=== PATIENT | female | born 1995 | race Caucasian/White ===

== ENCOUNTER → 2017-06-27 | Outpatient (CLI) | payer BC ==
--- NOTE | 2017-06-27 12:16 | DIAGNOSTIC IMAGING REPORT ---
CHEST 2 VIEWS ROUTINE HISTORY: 22 years-old Female COUGH acute cough COMPARISON: None available TECHNIQUE: PA and lateral views of the chest FINDINGS: Cardiac mediastinal and hilar silhouettes are within normal limits. No pneumothorax, pleural effusion, focal airspace consolidation or overt pulmonary edema. Mild right hemidiaphragmatic elevation. Bones of the chest appear grossly intact. IMPRESSION: No acute process. The above report was generated using voice recognition software. It may contain grammatical, syntax or spelling errors. Electronically signed by: Chinedu Castillo M.D. 06/27/2017 12:15 PM Dictated Date/Time: 06/27/2017 12:14 PM
== END | disposition home or self-care (01) ==
LOC: C.RAD1850 11:48
PROVIDERS: ATTEND Family Medicine Adolescent Medicine
DX: R05 Cough (principal)

== ENCOUNTER → 2017-07-18 | Outpatient (CLI) | payer BC | END | disposition home or self-care (01) | LOC: C.RC 09:08 | PROVIDERS: ATTEND Student in an Organized Health Care Education/Training Program | DX: R05 Cough (principal) ==

== ENCOUNTER 2021-06-30 12:07 | Inpatient (IN) ==
--- NOTE | 2021-06-30 12:43 | Emergency Department Note ---
History of Present Illness General Chief complaint: Shortness of Breath/Dyspnea Stated complaint: SOB WHEN WALKING, LIGHTHEADED, NAUSEA Time Seen by Provider: 06/30/21 12:24 History of Present Illness Maximum Pain Intensity: 2 26-year-old female presents to the ED with a chief complaint of shortness of breath with exertion. She also reports some mild chest discomfort/tightness with deep breathing. The patient reports feeling a little lightheaded this morning. Symptoms are worse with exertion. She has a family history of PE. Denies any upper respiratory symptoms. She did have a little left calf pain this morning but that seems better now. Past Med/Surg History Social History Smoking Status: Never smoker Feels Safe at Home: Yes Review of Systems A total of 10 systems reviewed and were otherwise negative Physical Exam Vital Signs Vital Signs - 24 hr 06/30/21 12:19 06/30/21 12:39 06/30/21 13:07 Temperature 36.4 C L Temperature Source Temporal Artery Scan Pulse Rate 127 H 118 H Pulse Rate [Apical] 127 H Respiratory Rate 24 24 22 Respiratory Effort / Characteristics Non-Labored Spontaneous Respiratory Depth Normal Blood Pressure 139/87 Blood Pressure [Right Arm] 127/86 Blood Pressure Mean 104 Blood Pressure Mean [Right Arm] 99 Pulse Oximetry 90 94 95 Oxygen Delivery Method Room Air Room Air Room Air Sepsis Recent Fever Within 48 Hours No Sepsis New/Unexplained Change in Mental Status N/A Sepsis Action Taken by Nursing No Action Required 06/30/21 13:11 Temperature Temperature Source Pulse Rate Pulse Rate [Apical] Respiratory Rate Respiratory Effort / Characteristics Respiratory Depth Blood Pressure Blood Pressure [Right Arm] Blood Pressure Mean Blood Pressure Mean [Right Arm] Pulse Oximetry Oxygen Delivery Method Room Air Sepsis Recent Fever Within 48 Hours Sepsis New/Unexplained Change in Mental Status Sepsis Action Taken by Nursing CONSTITUTIONAL/VITAL SIGNS: Reviewed / noted above. GENERAL: Non-toxic in appearance. Obese. INTEGUMENTARY: Warm, dry, and [place]. HEAD: Normocephalic. EYES: without scleral icterus or trauma. ENT/OROPHARYNX: clear and moist. LYMPHADENOPATHY/NECK: Is supple without lymphadenopathy or meningismus. RESPIRATORY: Clear to auscultation bilaterally. No increased work of breathing. CARDIOVASCULAR: Tachycardic rate and regular rhythm. GI/ABDOMEN: Soft and nontender. No organomegaly or pulsatile mass. EXTREMITIES: Warm and well perfused. BACK: No CVA tenderness. NEUROLOGICAL: Intact without focal deficits. PSYCHIATRIC: normal affect. MUSCULOSKELETAL: Normally developed with good muscle tone. No calf tenderness. TRIAGE NURSING DOCUMENTATION REVIEWED. Course Administered Medications Discontinued Medications Ioversol (Optiray 320 125ml) 120 ml IV ONCE ONE Stop: 06/30/21 14:29 Last Admin: 06/30/21 14:28 Dose: 120 ml Documented by: [id number] Critical Care Time Critical Care Time: Yes Total Critical Care Time: 30 I have personally spent 30 minutes of critical care time in the direct management of this patient. This includes bedside care, interpretation of diagnostic studies, and testing, discussion with consultants, patient, and family members, and other required patient management activities. This 30 minutes is in excess of all separately billable procedures. Medical Decision Making Differential Diagnosis The differential that was considered includes acute myocardial infarction, acute coronary syndrome, myocarditis, pericarditis, pericardial effusions /tamponade, esophageal perforation, thoracic aortic dissection, pulmonary embolism, pneumonia, pneumothorax, pancreatitis, shingles, acute cholecystitis, perforated abdominal viscus. Medical Records Attestation: I reviewed the patient's medical records. Home Medications Current Medication List: was personally reviewed by me Laboratory Data Attestation: I reviewed the patient's lab results. Result diagrams: 06/30/21 13:08 06/30/21 13:08 Lab Results 06/30/21 06/30/21 06/30/21 Range/Units 13:08 13:08 13:08 WBC 12.04 H (4.8-10.8) K/uL RBC 4.65 (4.2-5.4) M/uL Hgb 13.1 (12.0-16.0) g/dL Hct 39.5 (37-47) % MCV 84.9 (80-100) fL MCH 28.2 (25-34) pg MCHC 33.2 (32-36) g/dL RDW Std Deviation 42.0 (36.4-46.3) fL RDW Coeff of Dany 13.6 (11.5-14.5) % Plt Count 303 (130-400) K/uL MPV 9.2 (7.4-10.4) fL Immature Gran % (Auto) 0.2 % Neut % (Auto) 80.8 % Lymph % (Auto) 15.0 % Gates % (Auto) 2.9 % Eos % (Auto) 0.9 % Baso % (Auto) 0.2 % Neut # (Auto) 9.73 H (1.4-6.5) K/uL Lymph # (Auto) 1.81 (1.2-3.4) K/uL Gates # (Auto) 0.35 (0.11-0.59) K/uL Eos # (Auto) 0.11 (0-0.5) K/uL Baso # (Auto) 0.02 (0-0.2) K/uL Immature Gran # (Auto) 0.02 (0.00-0.02) K/uL PT 9.5 (9.0-12.0) Seconds INR 0.9 (0.9-1.1) APTT 24.2 (21.0-31.0) Seconds PTT Ratio 0.9 D-Dimer 3850 H* (0-500) ug/L FEU Sodium 136 (136-145) mmol/L Potassium 4.2 (3.5-5.1) mmol/L Chloride 104 (98-107) mmol/L Carbon Dioxide 22 (21-32) mmol/L Anion Gap 10 (3-11) BUN 16 (6-23) mg/dl Creatinine 0.64 (0.6-1.2) mg/dl Est Cr Clr Drug Dosing 198.8 ml/min Est GFR ( Amer) 140.7 ml/min Est GFR (Non-Af Amer) 121.4 ml/min BUN/Creatinine Ratio 25.0 H (10-20) Glucose 133 H (70-99(Fasting)) mg/dl Calcium 8.8 (8.5-10.1) mg/dl Total Bilirubin 0.2 (0.2-1.0) mg/dl AST 11 L (13-39) U/L ALT 9 (7-52) U/L Alkaline Phosphatase 79 (34-104) U/L Troponin I 0.15 H* (0-0.04) ng/ml Total Protein 7.2 (6.0-8.3) gm/dl Albumin 3.7 (3.4-5.0) gm/dl Globulin 3.5 (2.5-4.0) gm/dl Albumin/Globulin Ratio 1.1 (0.9-2) HCG, Qual (Negative) 06/30/21 Range/Units 13:08 WBC (4.8-10.8) K/uL RBC (4.2-5.4) M/uL Hgb (12.0-16.0) g/dL Hct (37-47) % MCV (80-100) fL MCH (25-34) pg MCHC (32-36) g/dL RDW Std Deviation (36.4-46.3) fL RDW Coeff of Dany (11.5-14.5) % Plt Count (130-400) K/uL MPV (7.4-10.4) fL Immature Gran % (Auto) % Neut % (Auto) % Lymph % (Auto) % Gates % (Auto) % Eos % (Auto) % Baso % (Auto) % Neut # (Auto) (1.4-6.5) K/uL Lymph # (Auto) (1.2-3.4) K/uL Gates # (Auto) (0.11-0.59) K/uL Eos # (Auto) (0-0.5) K/uL Baso # (Auto) (0-0.2) K/uL Immature Gran # (Auto) (0.00-0.02) K/uL PT (9.0-12.0) Seconds INR (0.9-1.1) APTT (21.0-31.0) Seconds PTT Ratio D-Dimer (0-500) ug/L FEU Sodium (136-145) mmol/L Potassium (3.5-5.1) mmol/L Chloride (98-107) mmol/L Carbon Dioxide (21-32) mmol/L Anion Gap (3-11) BUN (6-23) mg/dl Creatinine (0.6-1.2) mg/dl Est Cr Clr Drug Dosing ml/min Est GFR ( Amer) ml/min Est GFR (Non-Af Amer) ml/min BUN/Creatinine Ratio (10-20) Glucose (70-99(Fasting)) mg/dl Calcium (8.5-10.1) mg/dl Total Bilirubin (0.2-1.0) mg/dl AST (13-39) U/L ALT (7-52) U/L Alkaline Phosphatase (34-104) U/L Troponin I (0-0.04) ng/ml Total Protein (6.0-8.3) gm/dl Albumin (3.4-5.0) gm/dl Globulin (2.5-4.0) gm/dl Albumin/Globulin Ratio (0.9-2) HCG, Qual Negative (Negative) Imaging Data Radiologist's Impression: Chest CTA 06/30/21 12:39 CT angio chest PE protocol CLINICAL HISTORY: Dyspnea . Chest tightness. Evaluate for pulmonary embolus COMPARISON STUDY: No previous studies for comparison. CT DOSE: 1027.57 mGy.cm TECHNIQUE: CT Angio of the chest was performed.followed by image post processing with coronal, and sagittal MIP reformats. Contrast Volume: Optiray 320, 120 ml FINDINGS: Vasculature: There are intraluminal filling defects seen within the right lower lobe and left lower lobe pulmonary arteries. Thrombus extends into the second, third and fourth degree branches of both lower lobe pulmonary arteries. There is also thrombus present within the right upper lobe pulmonary arteries. Airway: The airway is clear. No endobronchial lesion is identified. Lungs: The lungs are clear of acute alveolar opacities, air bronchograms or pulmonary nodules. Pleura: There is no evidence for pleural effusion. There is no evidence for pneumothorax. Mediastinum: There is no evidence for pathologic adenopathy. There is evidence for mild right-sided heart strain with the ventricular septum is midline. The heart size is within normal limits. The thoracic aorta is within normal limits. There is no evidence for pericardial effusion. Upper abdomen:The adrenal glands are normal bilaterally. There is a small hiatal hernia. Osseous structures: There is no acute osseous pathology. Impression: 1. Positive CTA for right upper lobe, right lower lobe and left lower lobe pulmonary emboli. 2. Evidence for mild right heart strain with the ventricular septum is midline. 3. Otherwise, no acute chest disease. 4. Small hiatal hernia. ACT 112: Negative or not required by law. Electronically signed by: Alberto Polk M.D. 06/30/2021 2:42 PM ECG Data Attestation: I personally reviewed and interpreted this ECG as follows: Additional Comments: Twelve-lead EKG: Per my interpretation shows a sinus tach at a rate of 115. No ST elevation. No PVCs. Normal QTC. MDM Narrative 26-year-old female presents with shortness of breath with exertion. Vital signs reveal tachycardia and pulse ox is 90%. She is afebrile. D-dimer is elevated. CBC is normal. Chemistry panel was unremarkable. EKG shows sinus tach at a rate of 115. Troponin is elevated at 0.415. hCG was negative. CT scan showed bilateral PEs. The patient was told the results of the test. The patient was ordered IV heparin. She will be seen by the hospitalist. Impression & Plan Pulmonary embolism, Elevated troponin Discharge Plan Visit Data Chief Complaint: Shortness of Breath/Dyspnea Stated Complaint: SOB WHEN WALKING, LIGHTHEADED, NAUSEA ED Provider: Nilo Finch Discharge Problem: Pulmonary embolism, Elevated troponin Patient Disposition: Being Evaluated by Hospitalist Forms Stand Alone Forms: [facility] [place], [facility] Emergency Department, Important Visit Information Referrals Referrals: Cynthia Mcclelland MD [Primary Care Provider] -
[2021-06-30 13:22] LABS: Basophils # (auto) 0.02 K/uL (0-0.2); Basophils % (auto) 0.2 %; Eosinophils # (auto) 0.11 K/uL (0-0.5); Eosinophils % (auto) 0.9 %; Hematocrit (blood only) 39.5 % (37-47); Hemoglobin 13.1 g/dL (12.0-16.0); Immature Granulocytes # (auto) 0.02 K/uL (0.00-0.02); Immature Granulocytes % (auto) 0.2 %; Lymphocytes # (auto) 1.81 K/uL (1.2-3.4); Mean Corpuscular Hemoglobin 28.2 pg (25-34); Mean Corpuscular Hgb Conc 33.2 g/dL (32-36); Mean Corpuscular Volume 84.9 fL (80-100); Mean Platelet Volume 9.2 fL (7.4-10.4); Monocytes # (auto) 0.35 K/uL (0.11-0.59); Monocytes % (auto) 2.9 %; Neutrophils # (auto) 9.73 K/uL (1.4-6.5); Neutrophils % (auto) 80.8 %; Platelet Count 303 K/uL (130-400); RDW Coefficient of Variation 13.6 % (11.5-14.5); Red Blood Count 4.65 M/uL (4.2-5.4); White Blood Count 12.04 K/uL (4.8-10.8)
[2021-06-30 13:47] LABS: INR 0.9 (0.9-1.1); Partial Thromboplastin Ratio 0.9; Partial Thromboplastin Time 24.2 Seconds (21.0-31.0); Prothrombin Time 9.5 Seconds (9.0-12.0)
[2021-06-30 13:51] LABS: D Dimer 3850 ug/L FEU (0-500)
[2021-06-30 14:09] LABS: Albumin Globulin Ratio 1.1 (0.9-2); Albumin Level 3.7 gm/dl (3.4-5.0); Bilirubin,Total 0.2 mg/dl (0.2-1.0); Calcium 8.8 mg/dl (8.5-10.1); Creatinine Clr Calc Pharmacy 198.8 ml/min; Est GFR (African American) 140.7 ml/min; Est GFR (Non-African American) 121.4 ml/min; Globulin 3.5 gm/dl (2.5-4.0); Potassium 4.2 mmol/L (3.5-5.1); Total Protein 7.2 gm/dl (6.0-8.3)
[2021-06-30 14:12] LABS: Troponin I 0.15 ng/ml (0-0.04)
[2021-06-30 14:14] LABS: Pregnancy Test, Serum Negative (Negative)
[2021-06-30] MEDS ORDERED: OPTIRAY 320 125ml IV ONE (14:28)
[2021-06-30] MEDS ORDERED: Heparin IV Adult Wt-Based Standard WITH Bolus Protocol IV STA (14:33)
--- NOTE | 2021-06-30 14:43 | CT Scan Report ---
CT angio chest PE protocol CLINICAL HISTORY: Dyspnea . Chest tightness. Evaluate for pulmonary embolus COMPARISON STUDY: No previous studies for comparison. CT DOSE: 1027.57 mGy.cm TECHNIQUE: CT Angio of the chest was performed.followed by image post processing with coronal, and s agittal MIP reformats. Contrast Volume: Optiray 320, 120 ml FINDINGS: Vasculature: There are intraluminal filling defects seen within the right lower lobe and left lower l obe pulmonary arteries. Thrombus extends into the second, third and fourth degree branches of both lo wer lobe pulmonary arteries. There is also thrombus present within the right upper lobe pulmonary art eries. Airway: The airway is clear. No endobronchial lesion is identified. Lungs: The lungs are clear of acute alveolar opacities, air bronchograms or pulmonary nodules. Pleura: There is no evidence for pleural effusion. There is no evidence for pneumothorax. Mediastinum: There is no evidence for pathologic adenopathy. There is evidence for mild right-sided h eart strain with the ventricular septum is midline. The heart size is within normal limits. The thora cic aorta is within normal limits. There is no evidence for pericardial effusion. Upper abdomen:The adrenal glands are normal bilaterally. There is a small hiatal hernia. Osseous structures: There is no acute osseous pathology. Impression: 1. Positive CTA for right upper lobe, right lower lobe and left lower lobe pulmonary emboli. 2. Evidence for mild right heart strain with the ventricular septum is midline. 3. Otherwise, no acute chest disease. 4. Small hiatal hernia. ACT 112: Negative or not required by law. Electronically signed by: Alberto Polk M.D. 06/30/2021 2:42 PM
[2021-06-30] MEDS ORDERED: HEPARIN SOD (PORCINE) 1000 UNIT/ML IV ONE (14:48)
--- NOTE | 2021-06-30 14:56 | History & Physical Report ---
Date of Service June 30, 2021 Assessment & Plan (1) Pulmonary embolism: Plan: Extensive pulmonary emboli on CTA with some evidence of right heart strain, positive troponin and right axis deviation on EKG - discussed with roustabout crew leader (Dr Adams) and no need for tPA at this time unless clots transits on echocardiogram. BP stable and no hypoxia therefore we will monitor on PCU. PESI score 48 - very low risk. TTE stat to assess to clot in transit and right heart strain US venous doppler LLE due to calf pain on this side Stop oral contraceptive pill indefinitely Heparin IV standard bolus and drip (2) Elevated troponin: Plan: As above (3) Depression with anxiety: Plan: Continue citalopram Plan: VTE Prophylaxis - heparin IV as above Diet - regular Disposition - admit to PCU Admission and Anticipated Discharge Date Admission Date: June 30, 2021 History of Present Illness Chief Complaint: Shortness of breath, left calf pain Primary Care Provider: Cynthia Mcclelland MD Anuel Walls is a 26 year old female who presents to the the ER with shortness of breath and left calf pain. She reports feeling her normal self yesterday. Symptoms started this morning on waking up - feeling short of breath and light headed with left calf pain and palpitations. Worse on exertion but not position. She reports calf pain subsequently resolving. Associated chest tightness but no pain. She recognized her symptoms of pulmonary emboli due to her family history therefore drove to the emergency room. No significant change since arriving in the emergency room. Able to speak in full sentences at rest. She takes a combined oral conceptive Jacob Fe. She reports decreased mobility due to working at home with COVID and sitting for most of the day with her job. She doesn't smoke. Paternal grandmother had a blood clot but was much older when diagnosed with this. Mother had a pulmonary emboli after a hysterectomy. In the ER CT for PE shows extensive pulmonary emboli in the right upper and lower lobes and left lower lobes with evidence of mild right heart strain. Troponin I elevated 0.15 ng/ml. Intravenous heparin standard bolus and drip has been ordered. She was referred to medicine for admission and ongoing management of pulmonary emboli. Allergies Allergy/AdvReac Type Severity Reaction Status Date / Time No Known Allergies Allergy Unverified 06/30/21 16:18 Home Medications Medication Instructions Recorded Confirmed Type citalopram 20 mg tablet 30 mg PO DAILY 06/30/21 06/30/21 History norethindrone 1.5 mg-ethinyl 1 tab PO DAILY 06/30/21 06/30/21 History estradiol 30 mcg(21)/iron 75 mg(7) tablet (Jacob Fe 1.5/30 (28)) Past Med/Surg History Medical History (Updated 06/30/21 @ 16:39 by Bunny Yates MD) Depression with anxiety Social History Smoking Status: Never smoker Feels Safe at Home: Yes Review of Systems Review of Systems: All systems reviewed & are unremarkable except as noted in HPI & below Physical Exam Constitutional: WD/WN, vitals as above Eyes: + anicteric sclerae; normal pupil size ENMT: external ear and nose normal, oropharynx normal Neck: trachea midline, no thyromegaly Respiratory: normal respiratory effort, lungs clear to auscultation Cardiovascular: Rate/Rhythm: regular rhythm and + tachycardic Heart Sounds: no murmur Vessels: no JVD Extremities: normal capillary refill; no calf tenderness and no pedal edema Gastrointestinal (Abdomen): normal bowel sounds, soft, nontender, no hepatosplenomegaly Musculoskeletal: no cyanosis or clubbing, extremities motor strength 5/5 Skin: no rashes, warm and dry Neurologic: moves all extremities and awake; not confused Psychiatric: A+Ox3, euthymic affect Results & Data Results & Data ([facility]) Vital Signs (Past 12 Hours) Vital Signs Temp Pulse Pulse Resp BP BP Pulse Ox 06/30/21 13:07 127 H 22 127/86 95 06/30/21 12:39 118 H 24 94 06/30/21 12:19 36.4 C L 127 H 24 139/87 90 Laboratory Results Abnormal lab results 06/30/21 06/30/21 06/30/21 Range/Units 13:08 13:08 13:08 WBC 12.04 H (4.8-10.8) K/uL Neut # (Auto) 9.73 H (1.4-6.5) K/uL D-Dimer 3850 H* (0-500) ug/L FEU BUN/Creatinine Ratio 25.0 H (10-20) Glucose 133 H (70-99(Fasting)) mg/dl AST 11 L (13-39) U/L Troponin I 0.15 H* (0-0.04) ng/ml Diagnostic Findings CT angio chest PE protocol CLINICAL HISTORY: Dyspnea . Chest tightness. Evaluate for pulmonary embolus COMPARISON STUDY: No previous studies for comparison. CT DOSE: 1027.57 mGy.cm TECHNIQUE: CT Angio of the chest was performed.followed by image post processing with coronal, and sagittal MIP reformats. Contrast Volume: Optiray 320, 120 ml FINDINGS: Vasculature: There are intraluminal filling defects seen within the right lower lobe and left lower lobe pulmonary arteries. Thrombus extends into the second, third and fourth degree branches of both lower lobe pulmonary arteries. There is also thrombus present within the right upper lobe pulmonary arteries. Airway: The airway is clear. No endobronchial lesion is identified. Lungs: The lungs are clear of acute alveolar opacities, air bronchograms or pulmonary nodules. Pleura: There is no evidence for pleural effusion. There is no evidence for pneumothorax. Mediastinum: There is no evidence for pathologic adenopathy. There is evidence for mild right-sided heart strain with the ventricular septum is midline. The heart size is within normal limits. The thoracic aorta is within normal limits. There is no evidence for pericardial effusion. Upper abdomen:The adrenal glands are normal bilaterally. There is a small hiatal hernia. Osseous structures: There is no acute osseous pathology. Impression: 1. Positive CTA for right upper lobe, right lower lobe and left lower lobe pulmonary emboli. 2. Evidence for mild right heart strain with the ventricular septum is midline. 3. Otherwise, no acute chest disease. 4. Small hiatal hernia. Medications Administered ER medications given: Heparin IV standard bolus and drip ECG Indication: SOB/dyspnea Rate (beats per minute): 115 Rhythm: sinus tachycardia Findings: + other (right axis deviation) Comparison ECG Date: no prior available Code Status & VTE Plan Code Status Full VTE Prophylaxis Plan VTE Prophylaxis will be ordered: Yes PG Care Time/CCT Total # of Minutes Spent Total Time Spent with Patient: Total time spent is greater than 50% in coordination of care (as documented) at patient's floor/unit and/or counseling patient: Coding Level of Care Code 11944 Initial Inpt Care Lvl 3 Diagnoses Pulmonary embolism I26.99 Elevated troponin R77.8 Depression with anxiety F41.8
[2021-06-30] MEDS ORDERED: HEPARIN SODIUM/DEXTROSE 25,000 UNITS/500 ML BAG IV SCH (15:00)
[2021-06-30] MEDS ORDERED: ACETAMINOPHEN 325 MG TAB PO STA (16:39)
--- NOTE | 2021-06-30 17:14 | XCELERA ---
[id number]
[2021-06-30] MEDS ORDERED: DC ALL ANTICOAGULANTS STA (19:36)
[2021-06-30] MEDS ORDERED: ALTEPLASE, RECOMBINANT 100 MG in EMPTY BAG 0 ML IV STA (19:36)
[2021-06-30] MEDS ORDERED: PRIMARY PLUMSET, PE LINED TUBING, 113 IN, NON-DEHP (2260-0500) IV STA (19:36)
[2021-06-30] MEDS ORDERED: SODIUM CHLORIDE 0.9% 50 ML BAG IV STA (19:36)
[2021-06-30] MEDS ORDERED: Heparin IV Adult Wt-Based Low-Dose *NO* Bolus Protocol IV SCH (20:00)
--- NOTE | 2021-06-30 20:11 | Critical Care Consultation ---
Date of Consultation June 30, 2021 Assessment & Plan (1) Pulmonary embolism: Reason Critically Ill: 26-year-old female with pulmonary emboli extending into the right upper, lower, and middle lobes with evidence of right heart strain. Patient receiving tPA for lysis and admitted to ICU. Neuro - Anxiety and depression: Continue citalopram home dose Cardiac - Right heart strainas evident on CTA chest and echo secondary to extensive right pulmonary emboli. Patient currently with compensatory tachycardia and mildly elevated troponin. We will continue to monitor on telemetry. Expect to improve following lysis. Respiratory - Pulmonary embolismpulmonary emboli seen on CTA and right upper, lower, and middle lobe with evidence of right heart strain. She is currently maintaining oxygen saturations on room air without respiratory distress but does have symptomatic dyspnea. Patient was placed on heparin drip in ED and is currently undergoing lysis with tPA. Will resume heparin drip post tPA per protocol. Will monitor in ICU for 24 hours following tPA administration. She is currently on control and this should be discontinued. She did mention family history of blood clots without known clotting disorder, could consider work-up. She does have a history of obstructive sleep apnea and can use home CPAP. Continuous monitoring on pulse ox. GI - N.p.o. for now RENAL/LYTES - Creatinine stable, monitor routine BMPs and replete electrolytes as indicated - Strict I's and O's ENDO - No history of diabetes or thyroid disease. ICU hyperglycemic protocol HEME - H&H within normal limits, monitor for signs of bleeding. Type and screen ordered. ID - No indication for infectious process at this time LINES/IV ACCESS - Peripheral IV x1, left forearm 20-gauge endurance cath 04/30/2022 DVT PROPHYLAXIS - Suspect lower left DVT. Currently undergoing lysis. Lower extremity Doppler pending I have personally spent 40 minutes of critical care time in the direct management of this patient. This is a life/limb threatening event. This includes time spent evaluating patient, direct bedside care, chart review, placing orders, interpretation of diagnostic studies, discussion with consultants, patient, and family members, as well as other required patient management activities. This time is exclusive of all separately billable procedures, and teaching time and separate from and in addition to any other critical care service time. Thank you for allowing us to participate in the care of this patient. Please refer to my attending physician's documentation for any further recommendations. (2) Cor pulmonale: (3) Depression with anxiety: (4) Elevated troponin: (5) DVT (deep venous thrombosis): Supervising Physician Co-Signing Physician Notes I have personally evaluated and examined this patient. I agree with assessment and plan of Horace NARVAEZ. I discussed the risks and benefits of tPA with the patient and she opted to proceed with full dose tPA at this point. I believe that is reasonable given that she has right ventricular failure via echo as well as some alarming vital signs. Admittedly her Passey score was on the lower side however the patient is low risk for bleeding complications and would prefer to proceed with pharmacologic intervention. I have personally spent 35 minutes of critical care time in the direct management of this patient. This is a life/limb threatening event. This includes time spent evaluating patient, direct bedside care, chart review, placing orders, interpretation of diagnostic studies, discussion with consultants, patient, and/or family members regarding treatment decisions, as well as other required patient management activities. This time is exclusive of all separately billable procedures, and teaching time and separate from and in addition to any other critical care service time. History of Present Illness Attending Physician: Bunny Yates MD History of Present Illness Patient is a 26-year-old female with history of anxiety depression on citalopram, sleep apnea, on control. She also has family history of blood clots. She woke this morning to pain in her left calf. She soon began to have dyspnea and chest tightness with ambulation and motor activities. Patient presented to the emergency department where she underwent CTA chest which showed pulmonary embolism in the right upper, right lower, and left lower lobe with evidence of mild right heart strain. Echo showed septal flattening during diastole suggesting RV volume overload and dilated right ventricle with moderately reduced systolic function and severe hypokinesis of the right ventricle. She is initially started on heparin drip. Patient's troponin was elevated and she was tachycardic. ICU was consulted and lysis was recommended. Dr. Bonilla consented the patient for tPA which is now being administered. Patient to remain in ICU for 24 hours following tPA administration. On evaluation the patient is alert and oriented and without acute distress. She still complains of some dyspnea at rest but is no longer having chest pressure. She denies recent illness, headache, dizziness, sore throat, fevers, palpitations, abdominal pain, nausea or vomiting or diarrhea. She still complains of some calf pain in her left leg, but has not noticed any swelling. Allergies Allergy/AdvReac Type Severity Reaction Status Date / Time No Known Allergies Allergy Unverified 06/30/21 16:18 Home Medications Medication Instructions Recorded Confirmed Type citalopram 20 mg tablet 30 mg PO DAILY 06/30/21 06/30/21 History norethindrone 1.5 mg-ethinyl 1 tab PO DAILY 06/30/21 06/30/21 History estradiol 30 mcg(21)/iron 75 mg(7) tablet (Jacob Fe 1.5/30 (28)) Patient History Medical History (Updated 06/30/21 @ 21:34 by SOLANGE Espana) Depression with anxiety Social History Smoking Status: Never smoker Hx Alcohol Use: Yes Hx Substance Use: No Preferred Language: Irish Communication Ability: Effective Conveyor Tender Required: No Beliefs That Will Affect Care: None Current Living Situation: Alone Feels Safe at Home: Yes Safety Concerns: Feels Safe At This Time Review of Systems Review of Systems: All systems reviewed & are unremarkable except as noted in HPI & below Physical Exam Constitutional: WD/WN, vitals as above + obese, cooperative and comfortable; no acute distress Eyes: PERRL, conjunctivae normal, anicteric sclerae ENMT: external ear and nose normal, oropharynx normal Neck: trachea midline, no thyromegaly Respiratory: normal respiratory effort, lungs clear to auscultation Cardiovascular: Rate/Rhythm: regular rate, regular rhythm and + tachycardic Heart Sounds: normal S1 and normal S2; no murmur Extremities: no edema Gastrointestinal (Abdomen): normal bowel sounds, soft, nontender, no hepatosplenomegaly Musculoskeletal: no cyanosis or clubbing, extremities motor strength 5/5 Skin: no rashes, warm and dry Neurologic: PERRL, EOMI, accommodation nl, no face palsy, no dysarthria Psychiatric: A+Ox3, euthymic affect Results & Data Results & Data ([facility]) Vital Signs (Past 12 Hours) Vital Signs Temp Pulse Pulse Resp BP BP Pulse Ox 06/30/21 17:00 117 H 17 127/86 92 06/30/21 15:00 115 H 13 127/86 95 01/19/22 13:07 127 H 22 127/86 95 06/30/21 12:39 118 H 24 94 06/30/21 12:19 36.4 C L 127 H 24 139/87 90 Coding Level of Care Code Critical Care 1st 30-74 mins Diagnoses Cor pulmonale I27.81 Depression with anxiety F41.8 Pulmonary embolism I26.99 Elevated troponin R77.8 DVT (deep venous thrombosis) I82.409
[2021-06-30 20:17] LABS: Partial Thromboplastin Ratio 1.8; Partial Thromboplastin Time 47.8 Seconds (21.0-31.0)
--- NOTE | 2021-06-30 20:59 | Electrocardiogram Report ---
Test Reason : Blood Pressure : / mmHG Vent. Rate : 115 BPM Atrial Rate : 115 BPM P-R Int : 134 ms QRS Dur : 084 ms QT Int : 348 ms P-R-T Axes : 110 138 160 degrees QTc Int : 481 ms Suspect arm lead reversal, interpretation assumes no reversal Sinus tachycardia Right axis deviation Lateral infarct Cannot rule out Anterior infarct , age undetermined Abnormal ECG No previous ECGs available Confirmed by Johnnie Arias ([id number]) on 06/30/2021 8:58:39 PM Referred By: REFERRED SELF Confirmed By:Johnnie Arias
[2021-06-30] MEDS ORDERED: ONDANSETRON INJ 2 MG/ML 2 ML VIAL IV PRN (21:11)
[2021-06-30] MEDS ORDERED: ACETAMINOPHEN 325 MG TAB PO PRN (21:11)
--- NOTE | 2021-06-30 21:20 | Procedure Note ---
Procedure Note Date of Service June 30, 2021 Note ENDURANCE CATHETER PROCEDURE NOTE: Procedure: Fpc Indwelling Peripherally Inserted IV Catheter Placement Attending: Dr. Bonilla Provider: SOLANGE Dodd Indication: Need for IV Access, Poor Vascular Access Anesthesia: None Verbal consent was obtained from patient prior to performing the procedure. A time-out was completed verifying correct patient, procedure, site, positioning, and implant(s) or special equipment if applicable. Utilizing bedside ultrasound, vascularity of the left upper extremity was assessed. Vessel size was noted for appropriate catheter selection and skin was marked with gentle pressure. Patients left forearm was prepped and draped in the usual sterile fashion utilizing chlorhexidine. Ultrasound guidance was used to aid needle placement. A 20 g Endurance Catheter was introduced into the vein under direct ultrasound guidance. Guide wire was easily deployed without resistance. Catheter was threaded over the guide wire without resistance and the entire apparatus was removed intact. Good venous blood return was noted in the catheter. The IV catheter was easily flushed with sterile saline flush. Sterile clave was attached to the end of the catheter and good blood return was again noted. Tourniquet was released. StatLock device and sterile dressing were applied. The patient tolerated the procedure well. Blood Loss: Minimal Complications: None Procedural Ultrasound Guidance: Procedure Date: 06/30/2021 Indication: Poor Vascular Access Attending: Dr. Bonilla Povider: SOLANGE Dodd Artery/Veins Identified: YES Access confirmed in Vein with ultrasound: YES Complications: NONE Patient tolerated procedure: WELL Coding
--- NOTE | 2021-06-30 22:49 | CT Scan Report ---
CT head/brain wo con CLINICAL HISTORY: WISE, on TPA COMPARISON STUDY: No previous studies for comparison. CT DOSE: 537.48 mGy.cm TECHNIQUE: Standard CT of the Brain was performed without IV contrast. A dose lowering technique was utilized adhering to the principles of ALARA. FINDINGS: Extraaxial space: There is no evidence for subdural hematoma. There are no extra-axial fluid collecti ons. Ventricles and cisterns: The ventricles are normal in size and configuration. There is no evidence f or midline shift or mass effect. Parenchyma: There is no subarachnoid or intraparenchymal hemorrhage. There is no evidence for an acu te infarct or cerebral edema. There is homogeneous attenuation of the brain parenchyma. There are no gross mass lesions. Osseous structures: There is no evidence for an acute fracture. The visualized paranasal sinuses are clear. The mastoid air cells are clear bilaterally. Soft tissues: There is no evidence for focal soft tissue swelling. IMPRESSION: No acute intracerebral pathology. ACT 112: Negative or not required by law. Electronically signed by: Alberto Polk M.D. 06/30/2021 10:48 PM
--- NOTE | 2021-06-30 23:27 | Ultrasound Report ---
US venous doppler LE LT CLINICAL HISTORY: left leg pain, known PE COMPARISON: None available at the time of this dictation. TECHNIQUE: Left lower extremity real-time compression venous ultrasound with Color Doppler imaging. Utilizing real-time ultrasonic imaging multiple real time high-resolution ultrasonic images with comp ression and noncompression maneuvers of the deep venous system in addition to color doppler imaging w ere performed from the common femoral vein through the proximal calf veins. FINDINGS: Currently there is normal compressibility of the deep venous system from the common femoral vein thro ugh the proximal calf veins. No current evidence of acute thrombosis is identified. Impression: No evidence of deep venous thrombus. ACT 112: Negative or not required by law. Electronically signed by: Alberto Polk M.D. 06/30/2021 11:25 PM
[2021-07-01] MEDS ORDERED: OXYMETAZOLINE 0.05% 30 ML BTL ONE (00:21)
[2021-07-01 01:26] LABS: Hematocrit (blood only) 38.5 % (37-47); Hemoglobin 12.8 g/dL (12.0-16.0); Mean Corpuscular Hemoglobin 28.8 pg (25-34); Mean Corpuscular Hgb Conc 33.2 g/dL (32-36); Mean Corpuscular Volume 86.7 fL (80-100); Mean Platelet Volume 9.1 fL (7.4-10.4); Platelet Count 297 K/uL (130-400); RDW Coefficient of Variation 13.8 % (11.5-14.5); Red Blood Count 4.44 M/uL (4.2-5.4); White Blood Count 14.72 K/uL (4.8-10.8)
[2021-07-01 02:03] LABS: Partial Thromboplastin Ratio 1.7
[2021-07-01 02:12] LABS: Partial Thromboplastin Time 45.5 Seconds (21.0-31.0)
[2021-07-01] MEDS: HEPARIN SODIUM/DEXTROSE 25,000 UNITS/500 ML BAG IV SCH ×2 (02:28→20:33)
[2021-07-01 05:04] LABS: Basophils # (auto) 0.02 K/uL (0-0.2); Basophils % (auto) 0.2 %; Eosinophils # (auto) 0.16 K/uL (0-0.5); Eosinophils % (auto) 1.3 %; Hematocrit (blood only) 38.7 % (37-47); Hemoglobin 12.7 g/dL (12.0-16.0); Immature Granulocytes # (auto) 0.03 K/uL (0.00-0.02); Immature Granulocytes % (auto) 0.2 %; Lymphocytes # (auto) 3.13 K/uL (1.2-3.4); Mean Corpuscular Hemoglobin 28.5 pg (25-34); Mean Corpuscular Hgb Conc 32.8 g/dL (32-36); Mean Corpuscular Volume 86.8 fL (80-100); Monocytes # (auto) 0.59 K/uL (0.11-0.59); Monocytes % (auto) 4.9 %; Neutrophils # (auto) 8.13 K/uL (1.4-6.5); Neutrophils % (auto) 67.4 %; Platelet Count 307 K/uL (130-400); RDW Coefficient of Variation 13.9 % (11.5-14.5); Red Blood Count 4.46 M/uL (4.2-5.4); White Blood Count 12.06 K/uL (4.8-10.8)
[2021-07-01 05:30] LABS: Troponin I 0.24 ng/ml (0-0.04)
[2021-07-01 05:36] LABS: BUN Creatinine Ratio 28.8 (10-20); Calcium 8.6 mg/dl (8.5-10.1); Creatinine Clr Calc Pharmacy 221.2 ml/min; Est GFR (African American) 144.6 ml/min; Est GFR (Non-African American) 124.7 ml/min; Potassium 3.7 mmol/L (3.5-5.1)
--- NOTE | 2021-07-01 07:22 | Critical Care Progress Note ---
Date of Service July 01, 2021 Assessment & Plan (1) DVT (deep venous thrombosis): (2) Cor pulmonale: (3) Depression with anxiety: (4) Pulmonary embolism: (5) Elevated troponin: Plan: Reason Critically Ill: 26-year-old female with pulmonary emboli extending into the right upper, lower, and middle lobes with evidence of right heart strain. Patient receiving tPA for lysis and admitted to ICU. Neuro - Anxiety and depression: Continue citalopram home dose Cardiac - Right heart strainas evident on CTA chest and echo secondary to extensive right pulmonary emboli.Initially compensatory tachycardia and mildly elevated troponin.Trop downtrended. We will continue to monitor on telemetry. Expect to improve following lysis. Respiratory - Pulmonary embolismpulmonary emboli seen on CTA and right upper, lower, and middle lobe with evidence of right heart strain. She is currently maintaining oxygen saturations on room air without respiratory distress but does have symptomatic dyspnea. Now s/p tPA administration and back on heparin drip. Will monitor in ICU for 24 hours following tPA administration. BLE Doppler was negative for DVT. She is currently on control and this should be discontinued. She did mention family history of blood clots without known clotting disorder, could consider work-up. She does have a history of obstructive sleep apnea and can use home CPAP. Continuous monitoring on pulse ox. GI - Regular diet RENAL/LYTES - Creatinine stable, monitor routine BMPs and replete electrolytes as indicated - Strict I's and O's ENDO - No history of diabetes or thyroid disease. ICU hyperglycemic protocol HEME - H&H within normal limits, monitor for signs of bleeding. Type and screen ordered. ID - No indication for infectious process at this time LINES/IV ACCESS - Peripheral IV x1, left forearm 20-gauge endurance cath 04/30/2022 DVT PROPHYLAXIS - Heparin gtt, now s/p tPA for PE Admission and Anticipated Discharge Date Admission Date: June 30, 2021 Supervising Physician Co-Signing Physician Notes Dr. Meza was resident physician during care of patient. I separately evaluated patient for underwood portions of the history and the exam. I was present during the critical portion of medical decision making, and I discussed the case with the resident. I generally agree with the findings and plan. Subjectively feels improved, down titrating tropes, stable for downgrade out of the ICU at 24 hours post tPA. Subjective No acute events overnight. Patient reports feeling much better and her SOB, CP have now fully resolved. Mentions her PGM and mother both have histories of DVT and she was able to identify her symptoms by knowing what occurred to them. Review of Systems Review of Systems: Denies CP, palp, SOB, cough, back pain, abd pain, n/v, f/c, weakness, numbness, swelling. Physical Exam Physical Exam: GENERAL: A&Ox3. NAD. HEENT: PERRL, EOMI. Moist mucous membranes. CHEST/LUNGS: CTAB A/P. No crackles, wheezes, rales, rhonchi. HEART: RRR. No m/g/r. No carotid bruits. ABDOMEN: NT/ND, soft. BS+ x4 EXTREMITIES: No cyanosis, no clubbing, no edema SKIN: Warm and dry. No rashes or lesions. PSYCHIATRIC: Euthymic affect, no SI, no pressured speech, no hallucinations NEUROLOGIC: No FND. Results & Data Results & Data ([facility]) Vital Signs (Past 12 Hours) Vital Signs Temp Pulse Pulse Resp BP BP Pulse Ox 07/01/21 07:00 88 19 117/74 94 07/01/21 06:00 80 15 116/81 94 07/01/21 05:30 87 17 114/73 95 07/01/21 05:00 92 H 129/81 96 07/01/21 04:30 91 H 122/80 95 07/01/21 04:00 99 H 140/81 91 07/01/21 03:30 92 H 134/82 93 07/01/21 03:15 93 H 95 07/01/21 03:00 88 128/84 93 07/01/21 02:45 97 H 94 07/01/21 02:30 126/83 07/01/21 01:30 100 H 132/100 96 07/01/21 01:00 109 H 115/73 96 07/01/21 00:45 109 H 129/92 95 07/01/21 00:31 111 H 123/50 L 96 07/01/21 00:30 107 H 95 07/01/21 00:15 114 H 97/84 L 96 07/01/21 00:01 117 H 25 H 136/99 95 07/01/21 00:00 111 H 14 96 06/30/21 23:59 107 H 06/30/21 23:45 110 H 128/100 96 06/30/21 23:30 115 H 110/73 95 06/30/21 23:15 110 H 134/107 H 96 06/30/21 23:00 109 H 117/90 97 06/30/21 22:45 106 H 119/93 94 06/30/21 22:36 113 H 136/91 96 06/30/21 22:00 115 H 20 118/83 94 06/30/21 21:45 115 H 26 H 132/84 94 06/30/21 21:31 118 H 20 169/101 H 96 06/30/21 21:30 135 H 17 95 06/30/21 21:22 37.5 C 116 H 25 H 133/93 96 06/30/21 21:15 118 H 28 H 150/97 H 96 06/30/21 21:00 116 H 18 133/93 97 06/30/21 20:45 121 H 22 129/96 Critical Care Results & Data Vital Signs (Past 12 Hours) Vital Signs Temp Pulse Pulse Resp BP BP Pulse Ox 07/01/21 07:00 88 19 117/74 94 07/01/21 06:00 80 15 116/81 94 07/01/21 05:30 87 17 114/73 95 07/01/21 05:00 92 H 129/81 96 07/01/21 04:30 91 H 122/80 95 07/01/21 04:00 99 H 140/81 91 07/01/21 03:30 92 H 134/82 93 07/01/21 03:15 93 H 95 07/01/21 03:00 88 128/84 93 07/01/21 02:45 97 H 94 07/01/21 02:30 126/83 07/01/21 01:30 100 H 132/100 96 07/01/21 01:00 109 H 115/73 96 07/01/21 00:45 109 H 129/92 95 07/01/21 00:31 111 H 123/50 L 96 07/01/21 00:30 107 H 95 07/01/21 00:15 114 H 97/84 L 96 07/01/21 00:01 117 H 25 H 136/99 95 07/01/21 00:00 111 H 14 96 06/30/21 23:59 107 H 06/30/21 23:45 110 H 128/100 96 06/30/21 23:30 115 H 110/73 95 06/30/21 23:15 110 H 134/107 H 96 06/30/21 23:00 109 H 117/90 97 06/30/21 22:45 106 H 119/93 94 06/30/21 22:36 113 H 136/91 96 06/30/21 22:00 115 H 20 118/83 94 06/30/21 21:45 115 H 26 H 132/84 94 06/30/21 21:31 118 H 20 169/101 H 96 06/30/21 21:30 135 H 17 95 06/30/21 21:22 37.5 C 116 H 25 H 133/93 96 06/30/21 21:15 118 H 28 H 150/97 H 96 06/30/21 21:00 116 H 18 133/93 97 06/30/21 20:45 121 H 22 129/96 Lab & Micro Results (Past 24 Hours) RBC 4.46 M/uL (4.2-5.4) 07/01/21 WBC 12.06 K/uL (4.8-10.8) H 07/01/21 Hgb 12.7 g/dL (12.0-16.0) 07/01/21 Hct 38.7 % (37-47) 07/01/21 MCV 86.8 fL (80-100) 07/01/21 MCH 28.5 pg (25-34) 07/01/21 MCHC 32.8 g/dL (32-36) 07/01/21 RDW Standard Deviation 44.0 fL (36.4-46.3) 07/01/21 RDW Coefficient of Variation 13.9 % (11.5-14.5) 07/01/21 Plt Count 307 K/uL (130-400) 07/01/21 MPV 9.0 fL (7.4-10.4) 07/01/21 Neutrophils (%) (Auto) 67.4 % 07/01/21 Lymphocytes (%) (Auto) 26.0 % 07/01/21 Monocytes # (Auto) 0.59 K/uL (0.11-0.59) 07/01/21 Eosinophils # (Auto) 0.16 K/uL (0-0.5) 07/01/21 Immature Granulocyte % (Auto) 0.2 % 07/01/21 Neutrophils # (Auto) 8.13 K/uL (1.4-6.5) H 07/01/21 Lymphocytes # (Auto) 3.13 K/uL (1.2-3.4) 07/01/21 Monocytes # (Auto) 0.59 K/uL (0.11-0.59) 07/01/21 Eosinophils # (Auto) 0.16 K/uL (0-0.5) 07/01/21 Basophils # (Auto) 0.02 K/uL (0-0.2) 07/01/21 Immature Granulocyte # (Auto) 0.03 K/uL (0.00-0.02) H 07/01/21 Na 136 mmol/L (136-145) 07/01/21 K 3.7 mmol/L (3.5-5.1) 07/01/21 Cl 104 mmol/L (98-107) 07/01/21 CO2 22 mmol/L (21-32) 07/01/21 Anion Gap 10 (3-11) 07/01/21 BUN 17 mg/dl (6-23) 07/01/21 Creatinine 0.59 mg/dl (0.6-1.2) L 07/01/21 Estimated GFR ( Amer) 144.6 ml/min 07/01/21 Estimated GFR (Non-Af Amer) 124.7 ml/min 07/01/21 BUN/Creatinine Ratio 28.8 (10-20) H 07/01/21 Glu 147 mg/dl (70-99(Fasting)) H 07/01/21 Ca 8.6 mg/dl (8.5-10.1) 07/01/21 Total Bilirubin 0.2 mg/dl (0.2-1.0) 06/30/21 AST 11 U/L (13-39) L 06/30/21 ALT 9 U/L (7-52) 06/30/21 Alkaline Phosphatase 79 U/L (34-104) 06/30/21 TP 7.2 gm/dl (6.0-8.3) 06/30/21 Albumin 3.7 gm/dl (3.4-5.0) 06/30/21 Globulin 3.5 gm/dl (2.5-4.0) 06/30/21 Albumin/Globulin Ratio 1.1 (0.9-2) 06/30/21 Calcium Level 8.6 mg/dl (8.5-10.1) 07/01/21 04:45 07/01/21 Prothromb Time International Ratio 0.9 (0.9-1.1) 06/30/21 13:08 06/30/21 Diagnostic Findings (Past 24 Hours) Chest CTA 06/30/21 12:39 CT angio chest PE protocol CLINICAL HISTORY: Dyspnea . Chest tightness. Evaluate for pulmonary embolus COMPARISON STUDY: No previous studies for comparison. CT DOSE: 1027.57 mGy.cm TECHNIQUE: CT Angio of the chest was performed.followed by image post processing with coronal, and sagittal MIP reformats. Contrast Volume: Optiray 320, 120 ml FINDINGS: Vasculature: There are intraluminal filling defects seen within the right lower lobe and left lower lobe pulmonary arteries. Thrombus extends into the second, third and fourth degree branches of both lower lobe pulmonary arteries. There is also thrombus present within the right upper lobe pulmonary arteries. Airway: The airway is clear. No endobronchial lesion is identified. Lungs: The lungs are clear of acute alveolar opacities, air bronchograms or pulmonary nodules. Pleura: There is no evidence for pleural effusion. There is no evidence for pneumothorax. Mediastinum: There is no evidence for pathologic adenopathy. There is evidence for mild right-sided heart strain with the ventricular septum is midline. The heart size is within normal limits. The thoracic aorta is within normal limits. There is no evidence for pericardial effusion. Upper abdomen:The adrenal glands are normal bilaterally. There is a small hiatal hernia. Osseous structures: There is no acute osseous pathology. Impression: 1. Positive CTA for right upper lobe, right lower lobe and left lower lobe pulmonary emboli. 2. Evidence for mild right heart strain with the ventricular septum is midline. 3. Otherwise, no acute chest disease. 4. Small hiatal hernia. ACT 112: Negative or not required by law. Electronically signed by: Alberto Polk M.D. 06/30/2021 2:42 PM Venous Doppler Study 06/30/21 14:53 US venous doppler LE LT CLINICAL HISTORY: left leg pain, known PE COMPARISON: None available at the time of this dictation. TECHNIQUE: Left lower extremity real-time compression venous ultrasound with Color Doppler imaging. Utilizing real-time ultrasonic imaging multiple real time high-resolution ultrasonic images with compression and noncompression maneuvers of the deep venous system in addition to color doppler imaging were performed from the common femoral vein through the proximal calf veins. FINDINGS: Currently there is normal compressibility of the deep venous system from the common femoral vein through the proximal calf veins. No current evidence of acute thrombosis is identified. Impression: No evidence of deep venous thrombus. ACT 112: Negative or not required by law. Electronically signed by: Alberto Polk M.D. 06/30/2021 11:[address] 06/30/21 22:11 CT head/brain wo con CLINICAL HISTORY: WISE, on TPA COMPARISON STUDY: No previous studies for comparison. CT DOSE: 537.48 mGy.cm TECHNIQUE: Standard CT of the Brain was performed without IV contrast. A dose lowering technique was utilized adhering to the principles of ALARA. FINDINGS: Extraaxial space: There is no evidence for subdural hematoma. There are no extra-axial fluid collections. Ventricles and cisterns: The ventricles are normal in size and configuration. There is no evidence for midline shift or mass effect. Parenchyma: There is no subarachnoid or intraparenchymal hemorrhage. There is no evidence for an acute infarct or cerebral edema. There is homogeneous attenuation of the brain parenchyma. There are no gross mass lesions. Osseous structures: There is no evidence for an acute fracture. The visualized paranasal sinuses are clear. The mastoid air cells are clear bilaterally. Soft tissues: There is no evidence for focal soft tissue swelling. IMPRESSION: No acute intracerebral pathology. ACT 112: Negative or not required by law. Electronically signed by: Alberto Polk M.D. 06/30/2021 10:48 PM I & O Totals 24 Hours 06/30/21 07/01/21 07/02/21 06:59 06:59 06:59 Intake Total 1154.583 / 1154.583 100 / 100 Output Total 1500 / 1500 Balance -345.417 / -345.417 100 / 100 Cumulative 06/30/21 12:07 thru 07/01/21 07:04 Intake Total 1254.583 Output Total 1500 Balance -245.417 RT Ventilator Mngmt (Last Documented) Ventilator Ordered Settings Respiratory Rate 19 07/01/21 07:00 Ventilator - PT Measurements Respiratory Rate 19 Resident Activity Tracking Resident Involvement: Resident Care Provided Care Provided: Adult Hospital Medicine
--- NOTE | 2021-07-01 07:50 | Hospitalist Progress Note ---
Date of Service July 01, 2021 Assessment & Plan (1) Pulmonary embolism: Plan: Anuel Walls is a 26-year-old female with a family history of DVT/PE, OCP use, reduced physical activity due working from home, and BMI of 59 who presented to the emergency department with shortness of breath and calf pain which began morning of presentation which worsened with exertion. Patient reported a family history of pulmonary emboli, and was concerned about a blood clot and presented to the emergency department for evaluation. Pulmonary embolism Patient previously on combined OCP LarinFE. Has decreased mobility while working at home with COVID History of DVT/PE in her paternal grandmother and mother. Mother had pulmonary emboli post hysterectomy - Hemodynamically stable AM 07/01 CTA:Positive CTA for right upper lobe, right lower lobe and left lower lobe pulmonary emboli. Evidence for mild right heart strain with the ventricular septum is midline. - LLE Doppler: negative for DVT - CT-H: naf Troponin elevated 0.15 --> 0.23 --> 0.24 Admitted to ICU, underwent tPA lysis starting 06/30/20 at 2100hrs followed by continuation of heparin drip. Will be monitored in ICU x24 hours TTE: Normal LV SF, EF 55-60%. No regional wall motion abnormalities. Moderately dilated right ventricle with moderately reduced right ventricle systolic function, +Kim sign. -May send initial coag panel now including cardiolipin, beta-2 glycoprotein, factor V Leiden, prothrombin gene as these will need to be repeated for confirmation if any are positive. Other anticoagulation studies including protein C/protein S should not be performed at this time as well abnormal in the setting of large volume clot and anticoagulation and can be addressed at [address] Banks. Do not recommend any DOAC's due to weight/BMI. Will convert to weight based lovenox tomorrow with warfain bridge if doing well and no signs of bleeding. 6mo treatment minimum. - F/u with hypercoag clinic in 6 months for repeat/complete hypercoag testing (2) Elevated troponin: Plan: As above (3) Depression with anxiety: Plan: Continue citalopram Plan: VTE Prophylaxis - heparin IV as above Diet - regular Disposition - admit to PCU Admission and Anticipated Discharge Date Admission Date: June 30, 2021 Subjective Seen with bedside this morning. She reports she feels well, back to normal baseline. She reported her breathing immediately improved following tPA administration. No bleeding this morning. She denies chest pain, chest pressure, shortness of breath, inspiratory pain, fever, chills, sweats. 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 She has no history of hypercoagulable testing, no known hypercoagulable testing in her family although her mother and paternal grandparents have both had DVT/PE. No known history of recurrent loss. Review of Systems Review of Systems: All systems reviewed & are unremarkable except as noted in Subjective Physical Exam Physical Exam: General: A&Ox3. NAD. Cooperative. HEENT: Atraumatic, normocephalic. Pulm: CTAB A&P. -wheezes, -rales, -rhonchi. Symmetrical chest rise. No increase in work of breathing. No respiratory distress. Cardiac: RRR, -mrg. Radial pulses intact and symmetrical. Abdominal: Nontender, nondistended, soft. BS present. Extremities: Warm, dry. Radial pulse and PT pulse intact bilaterally. Extremity strength grossly intact, moving all extremities equally. Results & Data Results & Data ([facility]) Vital Signs (Past 12 Hours) Vital Signs Temp Pulse Pulse Resp BP BP Pulse Ox 07/01/21 07:00 88 19 117/74 94 07/01/21 06:00 80 15 116/81 94 07/01/21 05:30 87 17 114/73 95 07/01/21 05:00 92 H 129/81 96 07/01/21 04:30 91 H 122/80 95 07/01/21 04:00 99 H 140/81 91 07/01/21 03:30 92 H 134/82 93 07/01/21 03:15 93 H 95 07/01/21 03:00 88 128/84 93 07/01/21 02:45 97 H 94 07/01/21 02:30 126/83 07/01/21 01:30 100 H 132/100 96 07/01/21 01:00 109 H 115/73 96 07/01/21 00:45 109 H 129/92 95 07/01/21 00:31 111 H 123/50 L 96 07/01/21 00:30 107 H 95 07/01/21 00:15 114 H 97/84 L 96 07/01/21 00:01 117 H 25 H 136/99 95 07/01/21 00:00 111 H 14 96 06/30/21 23:59 107 H 06/30/21 23:45 110 H 128/100 96 06/30/21 23:30 115 H 110/73 95 06/30/21 23:15 110 H 134/107 H 96 06/30/21 23:00 109 H 117/90 97 06/30/21 22:45 106 H 119/93 94 06/30/21 22:36 113 H 136/91 96 06/30/21 22:00 115 H 20 118/83 94 06/30/21 21:45 115 H 26 H 132/84 94 06/30/21 21:31 118 H 20 169/101 H 96 06/30/21 21:30 135 H 17 95 06/30/21 21:22 37.5 C 116 H 25 H 133/93 96 06/30/21 21:15 118 H 28 H 150/97 H 96 06/30/21 21:00 116 H 18 133/93 97 06/30/21 20:45 121 H 22 129/96 PG Care Time/CCT Total # of Minutes Spent Total Time Spent with Patient: Total time spent is greater than 50% in coordination of care (as documented) at patient's floor/unit and/or counseling patient: Coding Level of Care Code 08766 Subseq Hosp Care Lvl 3 Diagnoses Pulmonary embolism I26.99 Elevated troponin R77.8 Depression with anxiety F41.8
[2021-07-01] MEDS ORDERED: Nursing to Pharmacy Communication SCH (09:00)
[2021-07-01] MEDS ORDERED: CITALOPRAM 20 MG TAB PO SCH ×2 (09:00→21:00)
[2021-07-01 09:36] LABS: Partial Thromboplastin Ratio 1.1; Partial Thromboplastin Time 28.2 Seconds (21.0-31.0)
--- NOTE | 2021-07-01 10:16 | Billing Data ---
Date of Service July 01, 2021 Coding Level of Care Code 86214 Subseq Hosp Care Lvl 3
[2021-07-01] MEDS ORDERED: HEPARIN SOD (PORCINE) 1000 UNIT/ML IV ONE ×3 (10:18→23:30)
[2021-07-01] MEDS ORDERED: HEPARIN IV BOLUS 4,500 UNITS in SYRINGE 0 ML IV ONE (10:30)
[2021-07-01 16:12] LABS: Partial Thromboplastin Ratio 1.1; Partial Thromboplastin Time 28.8 Seconds (21.0-31.0)
[2021-07-01 22:53] LABS: Partial Thromboplastin Ratio 1.3; Partial Thromboplastin Time 33.6 Seconds (21.0-31.0)
[2021-07-02 07:09] LABS: Partial Thromboplastin Ratio 1.4; Partial Thromboplastin Time 35.6 Seconds (21.0-31.0)
[2021-07-02 07:30] LABS: BUN Creatinine Ratio 23.7 (10-20); Calcium 8.5 mg/dl (8.5-10.1); Creatinine Clr Calc Pharmacy 221.8 ml/min; Est GFR (African American) 144.6 ml/min; Est GFR (Non-African American) 124.7 ml/min; Potassium 4.2 mmol/L (3.5-5.1)
[2021-07-02] MEDS ORDERED: HEPARIN SOD (PORCINE) 1000 UNIT/ML IV ONE (07:30)
[2021-07-02] MEDS: HEPARIN SODIUM/DEXTROSE 25,000 UNITS/500 ML BAG IV SCH (08:05)
[2021-07-02] MEDS ORDERED: ENOXAPARIN 1 MG/KG SQ SCH (09:15)
[2021-07-02 09:50] LABS: Basophils # (auto) 0.03 K/uL (0-0.2); Basophils % (auto) 0.2 %; Eosinophils # (auto) 0.44 K/uL (0-0.5); Eosinophils % (auto) 3.5 %; Hematocrit (blood only) 40.5 % (37-47); Hemoglobin 13.4 g/dL (12.0-16.0); Immature Granulocytes # (auto) 0.04 K/uL (0.00-0.02); Immature Granulocytes % (auto) 0.3 %; Lymphocytes # (auto) 4.17 K/uL (1.2-3.4); Lymphocytes % (auto) 33.1 %; Mean Corpuscular Hemoglobin 28.5 pg (25-34); Mean Corpuscular Hgb Conc 33.1 g/dL (32-36); Mean Platelet Volume 9.4 fL (7.4-10.4); Monocytes # (auto) 0.49 K/uL (0.11-0.59); Monocytes % (auto) 3.9 %; Neutrophils # (auto) 7.42 K/uL (1.4-6.5); Platelet Count 323 K/uL (130-400); RDW Coefficient of Variation 13.9 % (11.5-14.5); RDW Standard Deviation 43.6 fL (36.4-46.3); Red Blood Count 4.71 M/uL (4.2-5.4); White Blood Count 12.59 K/uL (4.8-10.8)
[2021-07-02] MEDS ORDERED: WARFARIN SOD 10 MG TAB PO ONE (11:02)
--- NOTE | 2021-07-02 11:06 | Discharge Summary ---
Date of Service July 02, 2021 Admission HPI Per Admitting Provider Anuel Walls is a 26 year old female who presents to the the ER with shortness of breath and left calf pain. She reports feeling her normal self yesterday. Symptoms started this morning on waking up - feeling short of breath and light headed with left calf pain and palpitations. Worse on exertion but not position. She reports calf pain subsequently resolving. Associated chest tightness but no pain. She recognized her symptoms of pulmonary emboli due to her family history therefore drove to the emergency room. No significant change since arriving in the emergency room. Able to speak in full sentences at rest. She takes a combined oral conceptive Jacob Fe. She reports decreased mobility due to working at home with COVID and sitting for most of the day with her job. She doesn't smoke. Paternal grandmother had a blood clot but was much older when diagnosed with this. Mother had a pulmonary emboli after a hysterectomy. In the ER CT for PE shows extensive pulmonary emboli in the right upper and lower lobes and left lower lobes with evidence of mild right heart strain. Troponin I elevated 0.15 ng/ml. Intravenous heparin standard bolus and drip has been ordered. She was referred to medicine for admission and ongoing management of pulmonary emboli. Admission Exam Per Admitting Provider Constitutional: WD/WN, vitals as above Eyes: + anicteric sclerae; normal pupil size ENMT: external ear and nose normal, oropharynx normal Neck: trachea midline, no thyromegaly Respiratory: normal respiratory effort, lungs clear to auscultation Cardiovascular: Rate/Rhythm: regular rhythm and + tachycardic Heart Sounds: no murmur Vessels: no JVD Extremities: normal capillary refill; no calf tenderness and no pedal edema Gastrointestinal (Abdomen): normal bowel sounds, soft, nontender, no hepatosplenomegaly Musculoskeletal: no cyanosis or clubbing, extremities motor strength 5/5 Skin: no rashes, warm and dry Neurologic: moves all extremities and awake; not confused Psychiatric: A+Ox3, euthymic affect Principal Diagnosis PE with cor pulmonale Discharge Exam General: A&Ox3. NAD. Cooperative. HEENT: Atraumatic, normocephalic. Pulm: CTAB A&P. -wheezes, -rales, -rhonchi. Symmetrical chest rise. No increase in work of breathing. No respiratory distress. Cardiac: RRR, -mrg. Radial pulses intact and symmetrical. Abdominal: Nontender, nondistended, soft. BS present. Extremities: Warm, dry. Radial pulse and PT pulse intact bilaterally. Extremity strength grossly intact, moving all extremities equally. 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 Patient reported a family history of pulmonary emboli, and was concerned about a blood clot and presented to the emergency department for evaluation. To Do As Outpt: 1. Lovenox 150mg BID therapeutic bridge to warfarin goal INR 2-3. Patient given warfarin 10 mg load then 5 mg daily with coag clinic appointment pending. 2. Follow-up to PCP within 2 weeks. Consider repeat echo when doing well as patient experienced cor pulmonale with Kim sign during admission 3. Permanently discontinue OCP 4. Follow-up on hypercoagulability testing. Some testing performed while inpatient including cardiolipin, factor V gene mutation, prothrombin gene mutation. Remaining testing not able to be performed in the setting of acute clot on anticoagulation, should be considered with confirmation of other tests at 6 months. 5. Continue therapeutic anticoagulation treatment for at least 6 months Pulmonary embolism with Cor Pulmonale Patient previously on combined OCP LarinFE. Has decreased mobility while working at home with COVID History of DVT/PE in her paternal grandmother and mother. Mother had pulmonary emboli post hysterectomy - Hemodynamically stable AM 07/01 CTA:Positive CTA for right upper lobe, right lower lobe and left lower lobe pulmonary emboli. Evidence for mild right heart strain with the ventricular septum is midline. - LLE Doppler: negative for DVT - CT-H: naf Troponin elevated 0.15 --> 0.23 --> 0.24 Admitted to ICU, underwent tPA lysis starting 06/30/20 at 2100hrs followed by continuation of heparin drip. Will be monitored in ICU x24 hours TTE: Normal LV SF, EF 55-60%. No regional wall motion abnormalities. Moderately dilated right ventricle with moderately reduced right ventricle systolic function, +Kim sign. -May send initial coag panel now including cardiolipin, beta-2 glycoprotein, factor V Leiden, prothrombin gene as these will need to be repeated for confirmation if any are positive. Other anticoagulation studies including protein C/protein S should not be performed at this time as well abnormal in the setting of large volume clot and anticoagulation and can be addressed at [address] Banks. Do not recommend any DOAC's due to weight/BMI. Warfarin goal 2-3 with lovenox 150mg BID bridge. - F/u with hypercoag clinic in 6 months for repeat/complete hypercoag testing (2) Elevated troponin: As above (3) Depression with anxiety: Continue citalopram VTE Prophylaxis - heparin IV as above Diet - regular Disposition - admit to PCU Total Time Total Time Spent Total Time Spent (In Minutes): Time spend day of discharge 60 minutes including direct patient care, doc umentation, review of labs and images, and coordination of care. Discharge Plan Discharge Items Patient Disposition: Home - Self-Care Reason For Visit: ACUTE PE Discharge Diagnosis: Acute Pulmonary Embolism requiring Thrombolytic Treatment Activity: Per Instructions section Non-emergency contact: Primary Care Provider Call non-emergency contact if: you have any medication questions, your symptoms worsen, your pain is unusual for you and you have a fever Follow-up/Referrals: Chio Banks MD, PhD [Pathologist] - 07/05/21 9:00 am ([facility]) Chandni Medellin CRNP [Primary Care Provider] - Diet: Regular Addtl Attending Provider Instructions: You were seen in the hospital for shortness of breath and leg pain which was found to be due to a clot in the lung called a pulmonary embolism. Your pulmonary embolism was severe, and required clot busting/thrombolytic treatment called tPA. Following this you were placed on an IV blood thinner. You nat ated this well. You case was discussed with the coagulation director clinical pharmacology. It is recommended that you be on blood thinners for at least 6 months, prescriptions has been made as below. Hypercoagulability testing was done during admission, your PCP will followup with your regarding these tests. They will likely need to be confirmed, and some testing cannot be performed in the setting of acute illness so may be repeated/checked in 6 months. You have been discharged on a blood thinner, Lovenox. Please take Lovenox 150 mg subcutaneously as instructed during admission twice daily. This is to protect you while you are warfarin is rising to therapeutic levels. You have been discharged on a medication, warfarin. You were given an initial 10 mg loading dose in the hospital, and continued on 5 mg daily. This medication will need to be adjusted based on your INR (blood thinness) levels. You have a appointment made with the coagulation clinic for Monday to check this level and adjust her medication as needed. Until your INR rises to a therapeutic level (the goal is between 2.0 and 3.0) you will continue Lovenox as above. Diet changes, antibiotics, and certain other medications can affect your INR levels and warfarin. Please try to eat a consistent diet. It is not necessary to avoid vitamin K containing foods, but it is more important to rather have a consistent diet as fluctuations may also cause your INR to fluctuate. Being on a blood thinner means that your increased risk of bleeding, and existing bleeding may be more difficult to stop. If you sustained a small cut apply firm direct pressure for 10 minutes before checking it. If your bleeding does not stop, or you sustain a larger cut or injury please present to the emergency department for evaluation. You are noted to have some heart stress due to your pulmonary embolism which was appreciated on your heart ultrasound. Please discuss a follow-up ultrasound to ensure normalization with your primary care provider. A follow-up appointment has been scheduled for you with the coagulation clinic and specialist Dr. Banks. You should receive a phone call to confirm your appointment. If you do not receive a call to confirm your appointment, please call their office [phone]. You should be seen on Wednesday 07/05. A followup appointment is being scheduled for you with Chandni Medellin. You should be seen seen within 1-2 weeks. You should receive a call to confirm this appointment. If you do not receive a call within 48 hours to confirm this appointment, or need to change this appointment, please call the provider's office at [phone]. If you develop any new or worsening symptoms including fever, chills, sweats, chest pain, chest pressure, difficulty breathing, uncontrolled nausea/vomiting, rash, wheezing, passing out or nearly passing out, bleeding, black/bloody bowel movements, or other new or concerning symptoms please call your primary care physician, or call 911 for re-evaluation in the emergency department if you are very concerned. Pending Studies at Discharge: No Stand-Alone Forms: My [facility] [employer], Smoking Cessation Medications and DC Order Prescriptions: New enoxaparin [Lovenox] 150 mg/mL syringe 150 mg subcut Q12H 7 Days Qty: 14 RF: 0 warfarin 5 mg tablet 5 mg PO DAILY Qty: 30 RF: 0 Continued citalopram 20 mg tablet 30 mg PO DAILY RF: 0 Discontinued norethindrone-e.estradiol-iron [Jacob Fe 1.5/30 (28)] 1.5 mg-30 mcg (21)/75 mg (7) tablet 1 tab PO DAILY RF: 0 Discharge Orders: Discharge Order (Routine); Ordered 07/02/21 Ordered By: Hermann Oden Admission Data Admit Date/Time: 06/30/21 14:55 Attending Provider: Hermann Oden Admit Provider: Bunny Yates Primary Care Provider: Chandni Medellin Other Providers: Gerald Bonilla ; Bunny Yates Coding Level of Care Code D/C DAY MANAGEMENT >30 MINS Diagnoses Pulmonary embolism I26.99 Elevated troponin R77.8 Depression with anxiety F41.8
[2021-07-02] MEDS ORDERED: ENOXAPARIN 150 MG/ML SYR SQ SCH (11:15)
[2021-07-10 20:47] LABS: Factor 5 Mutation NEGATIVE
[2021-07-19 21:21] LABS: B2 Glycoprotein IgA <2.0 U/mL (<20.0); B2 Glycoprotein IgG <2.0 U/mL (<20.0); B2 Glycoprotein IgM <2.0 U/mL (<20.0); Phosphatidylserine IgG <10 U/mL (<10)
== END 2021-07-02 13:35 | disposition home or self-care (01) | DRG 175 ==
LOC: ED 12:07 → EDINP 14:55 → SUATTDRO 14:55 → 1E 18:24 → 2S 07-01 17:39